=== PATIENT | female | born 1985 | race Caucasian/White ===

== ENCOUNTER 2022-05-01 22:30 | Emergency (ER) | payer OTHER ==
[2022-05-01 23:41] LABS: BILIRUBIN NEGATIVE (NEGATIVE); BLOOD 3+ Ery/uL (NEGATIVE); CLARITY CLEAR (CLEAR); COLOR YELLOW (YELLOW); GLUCOSE (U) NORMAL (NORMAL); LEUKOCYTES 3+ Leu/uL (NEGATIVE); NITRITE POSITIVE (NEGATIVE); PROTEIN 2+ mg/dL (NEGATIVE); SPECIFIC GRAVITY 1.025 (1.001-1.030)
[2022-05-01 23:48] LABS: BACTERIA 3+; URINARY RBC 20-50; URINARY WBC 20-50
[2022-05-01 23:49] LABS: AMORPHOUS URATES CRYSTALS MODERATE
[2022-05-01 23:58] LABS: BASOPHIL 0.3 % (0-2); EOSINOPHIL 0.2 % (0-5); HCT 43.1 % (37.0-47.0); HGB 14.5 g/dl (12.5-16.0); LYMPHOCYTE 18.3 % (15-48); MCH 32.4 pg (25.0-31.0); MCHC 33.6 g/dL (32.0-36.0); MCV 96.4 fL (78.0-100.0); MONOCYTE 7.4 % (0-12); NEUTROPHIL 73.6 % (41-80); NRBC 0; PLT 224 K/uL (150-400); RBC 4.47 M/uL (4.20-5.40); RDW 12.4 % (11.5-14.0); WBC 12.4 K/uL (4.0-10.5)
[2022-05-02 00:18] LABS: ALBUMIN 3.5 g/dL (3.4-5.0); BILIRUBIN - TOTAL 0.5 mg/dL (0.2-1.0); CREATININE 0.82 mg/dL (0.51-0.95); GLOBULIN (CALCULATION) 2.6 g/dL; POTASSIUM 3.9 mmol/L (3.5-5.1); TOTAL PROTEIN 6.1 g/dL (6.4-8.2)
[2022-05-02] MEDS ORDERED: IBUPROFEN800 MG PO ×2 (02:19→02:56)
[2022-05-02] MEDS ORDERED: BACTRIM DS TAB1 EACH PO ×2 (02:19→02:56)
[2022-05-02] MEDS ORDERED: DIFLUCAN 100MG100 MG PO ×2 (02:19→02:56)
== END 2022-05-02 02:55 | disposition home or self-care (01) ==
LOC: FER 22:30
PROVIDERS: Emergency Medicine
DX: N39.0 Urinary tract infection, site not specified (principal); F17.210 Nicotine dependence, cigarettes, uncomplicated; Z88.0 Allergy status to penicillin; Z28.310 Unvaccinated for COVID-19
CPT/HCPCS: 36415; 71100; 80053; 81001; 85025; 87076; 87088; 87186; J0696; J1885; J2405; J7030; Q9967